=== PATIENT | female | born 1965 | race Two or more races ===

== ENCOUNTER 2019-03-08 14:07 | Inpatient (IN) | payer OTHER ==
[~2019-03-08] VITALS: Ht 91.4 cm; Wt 5.0 kg
[~2019-03-08 14:07] MED LIST: ATENOLOL25 MG; INTESTINEX1 CA1 PO; NASONEX17 GM NS; TENORMIN25 MG; TUSSIONEX PENNKI5 ML PO; ZITHROMAX500 MG PO; ZOLOFT20 MG/1 ML
[2019-03-08] MEDS ORDERED: NEURONTIN300 MG (14:59)
[2019-03-08] MEDS ORDERED: PERCOCET 10-321 EACH (15:00)
[2019-03-09] MEDS ORDERED: KETOROLAC TROME10 MG PO (17:40)
== END 2019-03-09 18:44 | disposition home or self-care (01) | DRG 390 ==
LOC: ER 14:07 → SEC-K 14:34 → SURG 14:34
PROVIDERS: ADMIT Surgery
PROC: 3E0T3BZ Introduction of Anesthetic Agent into Peripheral Nerves and Plexi, Percutaneous Approach (ICD-10-PCS; 2019-03-08)
PROC: 0DCP7ZZ Extirpation of Matter from Rectum, Via Natural or Artificial Opening (ICD-10-PCS; principal; 2019-03-08 17:00)
DX: K56.41 Fecal impaction (principal); N81.6 Rectocele; K64.8 Other hemorrhoids

== ENCOUNTER 2019-03-12 22:16 | Inpatient (IN) | payer OTHER ==
[~2019-03-12] VITALS: Ht 160 cm; Wt 77.1 kg
[~2019-03-12 22:16] MED LIST changes: +KETOROLAC TROME10 MG PO; +NEURONTIN300 MG; +PERCOCET 10-321 EACH
--- NOTE | 2019-03-12 22:29 | NUR ---
PTE ALERTA Y ORIENTADA X 3 ESFERAS, LA CUAL REFIERE DOLOR ABDOMINAL, ANAL E IRRITACION EN AREA ANAL. SE UBICA EN AREA DE OBSERVACION.
--- NOTE | 2019-03-12 23:21 | NUR ---
PACIENTE ALERTA Y ORIENTADA POR HUY ESFERAS. MS. SUAREZ ORIENTA A PACIENTE SOBRE PROCEDIMIENTO Y TX, REFIERE ENTENDER. EXTRAE MUESTRAS DE LABORATORIO CON MEDIDAS ASEPTICAS Y ADMINISTRA MEDICAMENTOS NENITA ORDEN MEDICA. PENDIENTE CONSULTA CON DRA. ELDER.
--- NOTE | 2019-03-13 00:16 | NUR ---
SE INSERTA SONDA URINARIA PATENTE DRENANDO CON MEDIDAS ASEPTICAS Y ESTERILES EL CUAL DRENA ORINA COLOR WESTONO CHUY.
[2019-03-16] MEDS ORDERED: NUPERCAINAL56.7 GM TOP (11:44)
== END 2019-03-16 13:36 | disposition home or self-care (01) | DRG 389 ==
LOC: ER 22:16 → SURG 03-13 08:07
PROVIDERS: ADMIT Surgery
PROC: 3E0T3BZ Introduction of Anesthetic Agent into Peripheral Nerves and Plexi, Percutaneous Approach (ICD-10-PCS; 2019-03-13)
PROC: 0DCQ7ZZ Extirpation of Matter from Anus, Via Natural or Artificial Opening (ICD-10-PCS; principal; 2019-03-13 15:15)
PROC: BW4GZZZ Ultrasonography of Pelvic Region (ICD-10-PCS; 2019-03-14)
DX: K56.41 Fecal impaction (principal); D62 Acute posthemorrhagic anemia; K62.89 Other specified diseases of anus and rectum; R33.8 Other retention of urine; K64.8 Other hemorrhoids; K58.8 Other irritable bowel syndrome; N81.6 Rectocele; N81.11 Cystocele, midline

== ENCOUNTER 2019-05-22 12:54 | Outpatient (CLI) | payer OTHER | END 2019-05-22 14:12 | disposition home or self-care (01) | LOC: MAMO-SONO 12:54 | DX: Z12.31 Encounter for screening mammogram for malignant neoplasm of breast (principal); Z87.898 Personal history of other specified conditions; N60.11 Diffuse cystic mastopathy of right breast ==

== ENCOUNTER → 2019-05-22 | Outpatient (CLI) | payer OTHER ==
[~2019-05-22] MED LIST changes: +NUPERCAINAL56.7 GM TOP
== END | disposition home or self-care (01) ==
LOC: RAD 12:34
DX: R10.84 Generalized abdominal pain (principal); K59.09 Other constipation; K58.0 Irritable bowel syndrome with diarrhea; N39.0 Urinary tract infection, site not specified

== ENCOUNTER 2019-06-26 18:49 | Emergency (ER) | payer OTHER ==
[~2019-06-26] VITALS: Ht 160 cm; Wt 74.8 kg
[2019-06-27] MEDS ORDERED: CEFUROXIME500 MG PO (01:49)
[2019-06-27] MEDS ORDERED: VOLTAREN-XR100 MG PO (01:49)
== END 2019-06-27 02:00 | disposition home or self-care (01) ==
LOC: ER 18:49
DX: R10.814 Left lower quadrant abdominal tenderness (principal)

== ENCOUNTER 2021-03-25 09:06 | Outpatient (CLI) | payer OTHER ==
[~2021-03-25 09:06] MED LIST changes: +CEFUROXIME500 MG PO; +VOLTAREN-XR100 MG PO
== END 2021-03-25 09:18 | disposition home or self-care (01) ==
LOC: RX STUDY 09:06
PROVIDERS: ATTEND Internal Medicine Gastroenterology
DX: R13.10 Dysphagia, unspecified (principal)

== ENCOUNTER 2021-04-26 08:31 | Inpatient (IN) | payer OTHER ==
[~2021-04-26] VITALS: Ht 152.4 cm; Wt 72.6 kg
[2021-04-26] MEDS ORDERED: ZOLOFT25 MG (08:39)
[2021-04-26] MEDS ORDERED: ZOLOFT100 MG PO (08:39)
[2021-04-26] MEDS ORDERED: TOPROL XL25 M1 PO (08:39)
[2021-04-26] MEDS ORDERED: CLONAZEPAM1 MG PO (08:42)
[2021-04-30] MEDS ORDERED: TOPROL XL25 M1 PO (12:28)
[2021-04-30] MEDS ORDERED: INTESTINEX680 M1 PO (12:28)
[2021-04-30] MEDS ORDERED: AMOX-CLAV 875-1 EACH PO (12:28)
== END 2021-04-30 15:54 | disposition home or self-care (01) | DRG 392 ==
LOC: ER 08:31 → SURH 04-27 00:48
PROVIDERS: ADMIT Internal Medicine Geriatric Medicine; ATTEND Internal Medicine Geriatric Medicine
PROC: BW2110Z Computerized Tomography (CT Scan) of Abdomen and Pelvis using Low Osmolar Contrast, Unenhanced and Enhanced (ICD-10-PCS; principal; 2021-04-26)
PROC: 8E0ZXY6 Isolation (ICD-10-PCS; 2021-04-27)
DX: K52.9 Noninfective gastroenteritis and colitis, unspecified (principal); K62.5 Hemorrhage of anus and rectum; R00.0 Tachycardia, unspecified; Z20.822 Contact with and (suspected) exposure to COVID-19

== ENCOUNTER 2021-06-04 06:00 | Day surgery (SDC) | payer OTHER ==
[~2021-06-04 06:00] MED LIST changes: +AMOX-CLAV 875-1 EACH PO; +CLONAZEPAM1 MG PO; +INTESTINEX680 M1 PO; +TOPROL XL25 M1 PO; +ZOLOFT100 MG PO; +ZOLOFT25 MG
== END 2021-06-04 11:55 | disposition home or self-care (01) ==
LOC: AMB-ENDOS 06:00
PROVIDERS: ATTEND Surgery
DX: D12.8 Benign neoplasm of rectum (principal); Z20.822 Contact with and (suspected) exposure to COVID-19

== ENCOUNTER 2022-02-13 12:54 | Emergency (ER) | payer OTHER ==
[~2022-02-13] VITALS: Ht 160 cm; Wt 72.6 kg
[2022-02-13] MEDS ORDERED: TOPROL XL25 MG PO (13:18)
== END 2022-02-13 19:51 | disposition home or self-care (01) ==
LOC: ER 12:54
DX: R07.1 Chest pain on breathing (principal); R07.89 Other chest pain